=== PATIENT | male | born 1935 | race American Indian/Alaskan Native ===

== ENCOUNTER 2024-02-02 03:32 | Emergency (ER) | payer MEDICARE ==
[~2024-02-02] VITALS: Ht 172.7 cm; Wt 72.6 kg
[2024-02-02 03:45] LABS: BASOPHILS ABSOLUTE AUTO 0.03 K/mm3 (0.00-0.23); BASOPHILS PERCENT AUTO 1 % (0-2); EOSINOPHILS ABSOLUTE AUTO 0.01 K/mm3 (0.00-0.68); EOSINOPHILS PERCENT AUTO 0 % (0-6); Hematocrit 39.2 % (37.0-53.0); Hemoglobin 13.5 g/dL (13.5-17.5); IMMATURE GRAN ABSOLUTE AUTO 0.02 K/mm3 (0.00-0.10); IMMATURE GRAN PERCENT AUTO 0 % (0-1); LYMPHOCYTES ABSOLUTE AUTO 0.95 K/mm3 (0.84-5.20); LYMPHOCYTES PERCENT AUTO 18 % (21-46); MONOCYTES ABSOLUTE AUTO 0.59 K/mm3 (0.16-1.47); MONOCYTES PERCENT AUTO 11 % (4-13); Mean Corpuscular HGB 30.5 pg (26.0-34.0); Mean Corpuscular HGB Conc 34.4 g/dL (31.5-36.5); Mean Corpuscular Volume 89 fL (80-100); Mean Platelet Volume 10.1 fL (9.1-12.4); NEUTROPHILS ABSOLUTE AUTO 3.78 K/mm3 (1.96-9.15); NEUTROPHILS PERCENT AUTO 70 % (41-73); Platelet Count 167 K/mm3 (150-400); RDW Coefficient Variation 11.9 % (11.7-14.2); RDW Standard Deviation 38.7 fL (35.1-46.3); Red Blood Cell Count 4.42 M/mm3 (4.30-5.90); White Blood Cell Count 5.38 K/mm3 (4.00-11.30)
[2024-02-02 03:55] LABS: Source, Urine Voided
[2024-02-02 03:58] LABS: Bilirubin, Urine Neg (Neg); Blood, Urine 1+ (Neg); Glucose Qualitative, Urine Neg (Neg); Ketones, Urine 2+ (Neg); Leukocyte Esterase, Urine 1+ (Neg); Nitrite, Urine Neg (Neg); Protein, Urine 2+ (Neg); Specific Gravity, Urine 1.025 (1.003-1.022); Urobilinogen, Urine NORM (Normal)
[2024-02-02 04:32] LABS: CORONAVIRUS COVID-19 AG Negative (NEGATIVE); INFLUENZA A AG Positive (NEGATIVE); INFLUENZA B AG Negative (NEGATIVE)
[2024-02-02] MEDS ORDERED: METF500 PO (04:33)
[2024-02-02] MEDS ORDERED: FINA5 PO (04:34)
[2024-02-02] MEDS ORDERED: PRAV20 PO (04:34)
[2024-02-02] MEDS ORDERED: SITA100T2 PO (04:34)
[2024-02-02] MEDS ORDERED: LEVOTHYROXINE75 MC9 PO (04:34)
[2024-02-02] MEDS ORDERED: GABA300 PO (04:35)
[2024-02-02] MEDS ORDERED: VITAMIN D310 MC1 PO (04:36)
[2024-02-02 05:34] LABS: Appearance, Urine Clear (Clear); Color, Urine Yellow (P-Yellow)
[2024-02-02 05:40] LABS: Mucus Heavy (0-Heavy); Spermatozoa Rare /hpf
[2024-02-02 05:42] LABS: Red Blood Cells, Urine 0-2 /hpf (0-2)
[2024-02-02 05:43] LABS: Amorphous Light (0-Heavy); Bacteria Mod /hpf; Squamous Epithelial Cells Rare /hpf (Few); Transitional Epithelial Cells Rare /hpf (0-Rare)
[2024-02-02 05:44] LABS: Hyaline Casts 0-2 /lpf (0-2)
[2024-02-02 06:42] LABS: Magnesium, Blood 1.5 mg/dL (1.6-2.4)
[2024-02-02 06:47] LABS: Albumin, Blood 3.6 g/dL (3.4-5.0); Albumin/Globulin Ratio 0.9 (0.8-1.8); Bun/Creatinine Ratio 18.8 (12.0-20.0); Calcium, Blood 9.2 mg/dL (8.5-10.1); Creatinine, Blood 1.17 mg/dL (0.60-1.20); Globulin, Blood 3.8 g/dL (2.2-4.0); Potassium, Blood 4.1 mmol/L (3.5-5.5); Thyroid Stimulating Hormone 1.42 uIU/mL (0.360-4.800); Total Protein, Blood 7.4 g/dL (6.4-8.2)
[2024-02-02] MEDS ORDERED: Mag Sulfate 1 GM/D5% 100ML 100 ML IV ONE (06:55)
[2024-02-02] MEDS ORDERED: OSEL75CA PO (06:59)
[2024-02-02] MEDS ORDERED: Oseltamivir Phosphate 75 MG Cap PO ONE (07:00)
== END 2024-02-02 08:03 | disposition home or self-care (01) ==
LOC: ER 03:32
PROVIDERS: Student in an Organized Health Care Education/Training Program
DX: J10.1 Influenza due to other identified influenza virus with other respiratory manifestations (principal); R53.1 Weakness; E83.42 Hypomagnesemia; E11.9 Type 2 diabetes mellitus without complications; Z86.73 Personal history of transient ischemic attack (TIA), and cerebral infarction without residual deficits; Z79.84 Long term (current) use of oral hypoglycemic drugs; Z79.899 Other long term (current) drug therapy
CPT/HCPCS: 70450; 71046; 80053; 81001; 83735; 84443; 85025; 87086; 87428-QW; 93005; 93010; 96365; 99285-25; A9270; J3475